=== PATIENT | female | born 1975 | race Asian ===

== ENCOUNTER → 2024-12-06 09:42 | Outpatient (REF) | payer OTHER, SELFPAY | LOC: WDC 09:42 | PROVIDERS: ATTENDING PHYSICIAN Nurse Practitioner | DX: N64.4 Mastodynia (principal); R68.89 Other general symptoms and signs | CPT/HCPCS: 76642; 77062; 77066 ==

== ENCOUNTER → 2024-12-07 13:35 | Outpatient (REF) | payer OTHER, SELFPAY | LOC: RAD 13:35 | PROVIDERS: ATTENDING PHYSICIAN Nurse Practitioner | DX: I65.23 Occlusion and stenosis of bilateral carotid arteries (principal) | CPT/HCPCS: 93880 ==

== ENCOUNTER → 2024-12-14 06:21 | Outpatient (REF) | payer OTHER, SELFPAY ==
--- NOTE | 2024-12-14 09:18 | OID.BR.INTR ---
[facility] Breast Navigator - Initial
- -
Date of Contact: 12/14/24
Met with patient. Patient given written information on navigator service available at [facility]. Will follow up as needed per protocol.
== END ==
LOC: WDC 06:21
PROVIDERS: ATTENDING PHYSICIAN Nurse Practitioner
DX: R92.1 Mammographic calcification found on diagnostic imaging of breast (principal)
CPT/HCPCS: 19081; 76098; 88305; 88342; A4648

== ENCOUNTER → 2025-01-10 15:06 | Outpatient (REF) | payer OTHER, SELFPAY | LOC: HWRAD 15:06 | PROVIDERS: ATTENDING PHYSICIAN Nurse Practitioner Family; FAMILY PHYSICIAN Nurse Practitioner | DX: R10.33 Periumbilical pain (principal) | CPT/HCPCS: 76700 ==